=== PATIENT | female | born 1965 | race Caucasian/White ===

== ENCOUNTER 2019-02-18 13:23 | Emergency (ER) | payer OTHER ==
[2019-02-18 13:44] VITALS: TEMP 97.9; BMI 30.2
[2019-02-18] MEDS ORDERED: MAG HYDROX/ALH/SMC/DPHA/LIDO 240 ML MOUTHWASH MM ONE (14:50)
[2019-02-18] MEDS ORDERED: FAMOTIDINE 20 MG/50 ML IVPB 20 MG/50 ML MG IVPB ONE ×2 (14:50→15:09)
--- NOTE | 2019-02-18 14:50 | PDOC ---
History of Present Illness <Ramona Field - Last Filed: 02/18/19 18:03> - General History Source: Patient, Family - History of Present Illness Timing/Duration: reports: getting worse, intermittent Quality: reports: severe Abdominal Pain Onset Location: reports: RUQ, epigastric <Jacklyn Cisneros - Last Filed: 02/19/19 13:49> - General Chief Complaint: Pain Stated Complaint: ABD/PAIN Time Seen by Provider: 02/18/19 14:29 Past History <Ramona Field - Last Filed: 02/18/19 18:03> - Psycho Social/Smoking Cessation Hx Smoking History: Never smoked Hx Alcohol Use: No Drug/Substance Use Hx: No <Jacklyn Cisneros - Last Filed: 02/19/19 13:49> - Past Medical History Allergies/Adverse Reactions: Allergies Allergy/AdvReac Type Severity Reaction Status Date / Time No Known Allergies Allergy Verified 02/18/19 13:34 Home Medications: Ambulatory Orders Famotidine [Pepcid] 20 mg PO DAILY #20 tablet 02/18/19 Review of Systems - Review of Systems Constitutional: No: Chills, Fever Respiratory: No: Shortness of Breath Cardiac (ROS): No: Chest Pain ABD/GI: No: Blood Streaked Bowels, Constipated, Diarrhea, Nausea, Rectal Bleeding, Vomiting, Tarry Stools : No: Burning, Dysuria <Jacklyn Cisneros - Last Filed: 02/19/19 13:49> *Physical Exam - Vital Signs Last Vital Signs Temp Pulse Resp BP Pulse Ox 97.9 F 75 16 141/66 99 02/18/19 13:25 02/18/19 13:25 02/18/19 13:25 02/18/19 13:25 02/18/19 13:25 <Ramona Field - Last Filed: 02/18/19 18:03> - Vital Signs Last Vital Signs Temp Pulse Resp BP Pulse Ox 97.9 F 75 16 141/66 99 02/18/19 13:25 02/18/19 13:25 02/18/19 13:25 02/18/19 13:25 02/18/19 13:25 - Physical Exam General Appearance: Yes: Appropriately Dressed, Moderate Distress HEENT: positive: Normal Voice Neck: positive: Supple Respiratory/Chest: positive: Lungs Clear, Normal Breath Sounds. negative: Respiratory Distress Cardiovascular: positive: Regular Rate, S1, S2 Gastrointestinal/Abdominal: positive: Tender (minimal ttp to mid upper abd and RUQ, neg murpheys, neg CVAT) Musculoskeletal: negative: CVA Tenderness Integumentary: positive: Dry, Warm Neurologic: positive: Fully Oriented, Alert, Normal Mood/Affect <Teena CisnerosJamel - Last Filed: 02/19/19 13:49> ED Treatment Course - LABORATORY CBC & Chemistry Diagram: 02/18/19 15:30 02/18/19 15:30 - ADDITIONAL ORDERS Additional order review: Laboratory Results 02/18/19 02/18/19 16:08 15:30 Sodium 140 Potassium 4.5 Chloride 106 Carbon Dioxide 27 Anion Gap 7 L BUN 12.2 Creatinine 0.6 Est GFR (CKD-EPI)AfAm 119.77 Est GFR (CKD-EPI)NonAf 103.34 Random Glucose 83 Calcium 9.3 Total Bilirubin 0.4 AST 30 ALT 48 Alkaline Phosphatase 106 Total Protein 8.5 H Albumin 4.3 Lipase 157 Urine Color Yellow Urine Appearance Clear Urine pH 6.0 Ur Specific [place] 1.005 L Urine Protein Negative Urine Glucose (UA) Negative Urine Ketones Negative Urine Blood Negative Urine Nitrite Negative Urine Bilirubin Negative Urine Urobilinogen 0.2 Ur Leukocyte Esterase Negative 02/18/19 15:30 RBC 4.19 MCV 90.1 MCHC 33.3 RDW 13.6 MPV 8.1 Neutrophils % 55.6 Lymphocytes % 37.7 Monocytes % 5.4 Eosinophils % 0.8 Basophils % 0.5 - Medications Given in the ED: ED Medications Discontinued Medications Generic Name Dose Route Start Last Admin Trade Name Johnieq PRN Reason Stop Dose Admin Acetaminophen 1,000 mg 02/18/19 14:51 02/18/19 15:37 Ofirmev Injection - IVPB 02/18/19 14:52 1,000 mg ONCE ONE Administration Famotidine/Sodium Chloride 20 mg in 50 mls @ 100 mls/hr 02/18/19 14:50 15:00 Pepcid 20 Mg Premixed Ivpb - IVPB 02/18/19 15:19 100 mls/hr ONCE ONE Administration Sodium Chloride 1,000 mls @ 1,000 mls/hr 02/18/19 14:51 02/18/19 15:37 Normal Saline - IV 02/18/19 15:50 1,000 mls/hr ASDIR STA Administration Lidocaine/Aluminum/Magnesium/Simeth 5 ml 02/18/19 14:50 02/18/19 16:56 Magic Mouthwash *Sjr Formula* - MM 02/18/19 14:51 Not Given ONCE ONE <Ramona Field Nilsa - Last Filed: 02/18/19 18:03> - LABORATORY CBC & Chemistry Diagram: 02/18/19 15:30 02/18/19 15:30 <Jacklyn Cisneros - Last Filed: 02/19/19 13:49> Medical Decision Making - Medical Decision Making The patient was seen and evaluated in conjunction with midlevel provider under my direct supervision, ancillary studies were reviewed. I agree with the plan as outlined ALTA Cisneros. HPI, workup/dispo as outlined. VS reviewed, wnl. sono with fatty liver, post cholecystectomy labs and lytes/UA unremarkable. LFTs/lipase wnl anticipate discharge, pcp followup, return precautions 02/18/19 18:03 <Ramona Field - Last Filed: 02/18/19 18:03> - Medical Decision Making 02/18/19 14:47 53 yo F, reports h/o "reflux" dx 1 yr ago but no scopes and never been on meds, here here w/ abd pain. Patient states for the past month she has had intermittent pain to epigastric area that radiates to right side of abdomen and back. States pain acutely worsened 2 days ago. No association with food. No nausea, vomiting, fever, chills, change in bowel movements, dysuria or hematuria. Unclear if current pain feels like her reflux diagnosed in the past per patient, not currently taking any meds. Per daughter, patient does tend to take frequent NSAIDs for various pains at home. Denies alcohol intake. see exam Gastritis/GERD vs biliary source, less likely pancreatitis, uti/pyelo, stone or appy -trial of GI cocktail -labs -US -reassess 02/18/19 16:01 Signed out to ALTA Saul pending labs/US and reassessment 02/18/19 16:10 <Jacklyn Cisneros - Last Filed: 02/19/19 13:49> Discharge <Ramona Field - Last Filed: 02/18/19 18:03> - Discharge Information Problems reviewed: Yes <Teena Cisneros-Ashley - Last Filed: 02/19/19 13:49> - Discharge Information Clinical Impression/Diagnosis: Abdominal pain Qualifiers: Abdominal location: unspecified location Qualified Code(s): R10.9 - Unspecified abdominal pain Condition: Stable Disposition: HOME - Additional Discharge Information Prescriptions: Famotidine [Pepcid] 20 mg PO DAILY #20 tablet - Follow up/Referral Referrals: Noreen Loomis MD [Staff Physician] - Jakub Sanders MD [Staff Physician] - - Patient Discharge Instructions Patient Printed Discharge Instructions: DI for Abdominal Pain-Adult Additional Instructions: Your Discharge Instructions: You must call primary care physician within 24 hours to arrange follow-up. Return to the Emergency Department with any new, persistent or worsening symptoms, for fever, chills, SOB, dizziness or any other concerning changes that may occur. Follow-up with the chain maker machine call to make an appointment for further evaluation and treatment.
[2019-02-18] MEDS ORDERED: SODIUM CHLORIDE 1,000 ML IV STA (14:51)
[2019-02-18] MEDS ORDERED: ACETAMINOPHEN 1000 MG/100 ML VIAL (NON FORMULARY) IVPB ONE (14:51)
[2019-02-18] MEDS ORDERED: ACETAMINOPHEN INJECTION 100 ML IVPB ONE (15:09)
[2019-02-18 15:49] LABS: BASO % 0.5 % (0-2.0); EOS % 0.8 % (0-4.5); HEMATOCRIT 37.7 % (32.4-45.2); HEMOGLOBIN 12.6 GM/dL (10.7-15.3); LYMPH % 37.7 % (8-40); MCHC 33.3 g/dl (32.0-36.0); MEAN CELL VOLUME 90.1 fl (80-96); MEAN PLT VOLUME 8.1 fl (7.5-11.1); MONO % 5.4 % (3.8-10.2); NEUT % 55.6 % (42.8-82.8); PLATELET COUNT 326 K/MM3 (134-434); RBC 4.19 M/mm3 (3.60-5.2); RDW 13.6 % (11.6-15.6)
[2019-02-18 16:10] LABS: ALBUMIN 4.3 g/dl (3.4-5.0); BILIRUBIN,TOTAL 0.4 mg/dL (0.2-1); BLOOD UREA NITROGEN 12.2 mg/dL (7-18); CALCIUM 9.3 mg/dL (8.5-10.1); CREATININE 0.6 mg/dL (0.55-1.3); POTASSIUM 4.5 mmol/L (3.5-5.1); TOT PROT 8.5 g/dl (6.4-8.2)
[2019-02-18 16:35] LABS: URINE APPEARANCE CLEAR; URINE BILIRUBIN NEGATIVE (NEGATIVE); URINE COLOR YELLOW; URINE GLUCOSE (UA) NEGATIVE (NEGATIVE); URINE KETONE NEGATIVE (NEGATIVE); URINE LEUK ESTERASE NEGATIVE (NEGATIVE); URINE NITRITE NEGATIVE (NEGATIVE); URINE PROTEIN NEGATIVE (NEGATIVE); URINE UROBILINOGEN 0.2 mg/dL (0.2-1.0)
--- NOTE | 2019-02-18 17:51 | PDOC ---
*Physical Exam - Vital Signs Last Vital Signs Temp Pulse Resp BP Pulse Ox 97.9 F 75 16 141/66 99 02/18/19 13:25 02/18/19 13:25 02/18/19 13:25 02/18/19 13:25 02/18/19 13:25 <Abbi Carranza - Last Filed: 02/18/19 17:55> - Vital Signs Last Vital Signs Temp Pulse Resp BP Pulse Ox 97.9 F 75 16 141/66 99 02/18/19 13:25 02/18/19 13:25 02/18/19 13:25 02/18/19 13:25 02/18/19 13:25 <Ramona Fieldjaky - Last Filed: 02/18/19 18:05> ED Treatment Course - LABORATORY CBC & Chemistry Diagram: 02/18/19 15:30 02/18/19 15:30 - ADDITIONAL ORDERS Additional order review: Laboratory Results 02/18/19 02/18/19 16:08 15:30 Sodium 140 Potassium 4.5 Chloride 106 Carbon Dioxide 27 Anion Gap 7 L BUN 12.2 Creatinine 0.6 Est GFR (CKD-EPI)AfAm 119.77 Est GFR (CKD-EPI)NonAf 103.34 Random Glucose 83 Calcium 9.3 Total Bilirubin 0.4 AST 30 ALT 48 Alkaline Phosphatase 106 Total Protein 8.5 H Albumin 4.3 Lipase 157 Urine Color Yellow Urine Appearance Clear Urine pH 6.0 Ur Specific [place] 1.005 L Urine Protein Negative Urine Glucose (UA) Negative Urine Ketones Negative Urine Blood Negative Urine Nitrite Negative Urine Bilirubin Negative Urine Urobilinogen 0.2 Ur Leukocyte Esterase Negative 02/18/19 15:30 RBC 4.19 MCV 90.1 MCHC 33.3 RDW 13.6 MPV 8.1 Neutrophils % 55.6 Lymphocytes % 37.7 Monocytes % 5.4 Eosinophils % 0.8 Basophils % 0.5 - Medications Given in the ED: ED Medications Discontinued Medications Generic Name Dose Route Start Last Admin Trade Name Freq PRN Reason Stop Dose Admin Acetaminophen 1,000 mg 02/18/19 14:51 02/18/19 15:37 Ofirmev Injection - IVPB 02/18/19 14:52 1,000 mg ONCE ONE Administration Famotidine/Sodium Chloride 20 mg in 50 mls @ 100 mls/hr 02/18/19 14:50 15:00 Pepcid 20 Mg Premixed Ivpb - IVPB 02/18/19 15:19 100 mls/hr ONCE ONE Administration Sodium Chloride 1,000 mls @ 1,000 mls/hr 02/18/19 14:51 02/18/19 15:37 Normal Saline - IV 02/18/19 15:50 1,000 mls/hr ASDIR STA Administration Lidocaine/Aluminum/Magnesium/Simeth 5 ml 02/18/19 14:50 02/18/19 16:56 Magic Mouthwash *Sjr Formula* - MM 02/18/19 14:51 Not Given ONCE ONE <Abbi Carranza - Last Filed: 02/18/19 17:55> - LABORATORY CBC & Chemistry Diagram: 02/18/19 15:30 02/18/19 15:30 - ADDITIONAL ORDERS Additional order review: Laboratory Results 02/18/19 02/18/19 16:08 15:30 Sodium 140 Potassium 4.5 Chloride 106 Carbon Dioxide 27 Anion Gap 7 L BUN 12.2 Creatinine 0.6 Est GFR (CKD-EPI)AfAm 119.77 Est GFR (CKD-EPI)NonAf 103.34 Random Glucose 83 Calcium 9.3 Total Bilirubin 0.4 AST 30 ALT 48 Alkaline Phosphatase 106 Total Protein 8.5 H Albumin 4.3 Lipase 157 Urine Color Yellow Urine Appearance Clear Urine pH 6.0 Ur Specific [place] 1.005 L Urine Protein Negative Urine Glucose (UA) Negative Urine Ketones Negative Urine Blood Negative Urine Nitrite Negative Urine Bilirubin Negative Urine Urobilinogen 0.2 Ur Leukocyte Esterase Negative 02/18/19 15:30 RBC 4.19 MCV 90.1 MCHC 33.3 RDW 13.6 MPV 8.1 Neutrophils % 55.6 Lymphocytes % 37.7 Monocytes % 5.4 Eosinophils % 0.8 Basophils % 0.5 - Medications Given in the ED: ED Medications Discontinued Medications Generic Name Dose Route Start Last Admin Trade Name Freq PRN Reason Stop Dose Admin Acetaminophen 1,000 mg 02/18/19 14:51 02/18/19 15:37 Ofirmev Injection - IVPB 02/18/19 14:52 1,000 mg ONCE ONE Administration Famotidine/Sodium Chloride 20 mg in 50 mls @ 100 mls/hr 02/18/19 14:50 15:00 Pepcid 20 Mg Premixed Ivpb - IVPB 02/18/19 15:19 100 mls/hr ONCE ONE Administration Sodium Chloride 1,000 mls @ 1,000 mls/hr 02/18/19 14:51 02/18/19 15:37 Normal Saline - IV 02/18/19 15:50 1,000 mls/hr ASDIR STA Administration Lidocaine/Aluminum/Magnesium/Simeth 5 ml 02/18/19 14:50 02/18/19 16:56 Magic Mouthwash *Sjr Formula* - MM 02/18/19 14:51 Not Given ONCE ONE <Ramona Field - Last Filed: 02/18/19 18:05> Medical Decision Making - Medical Decision Making 02/18/19 17:48 Patient endorsed to me to follow the Abd US. Patient seen and evaluated currently pain free in NAD P/E abd soft/nontender, Patient Full Name: LISSY CAMP Patient Accession No: [id number] Patient : 1965 Reason for Exam: ruq pain Referring Physician: JULIETA GALVEZ Patient Name: CONRADO YUAN THIS IS A PRELIMINARY REPORT FROM [facility] DATE OF SERVICE: 2019-02-18 15:57:45 IMAGES: 39 EXAM: US ABDOMEN LIMITED Right upper quadrant ultrasound REASON FOR EXAM: Right upper quadrant pain COMPARISON: None FINDINGS: Gallbladder surgically absent. Common bile duct normal at 5 mm. Liver is fatty in echotexture without obvious hepatic mass or intrahepatic biliary dilatation. The visualized pancreas and right kidney are within normal. There is no hydronephrosis. Right kidney measures 9.5 x 5.0 x 4.3 cm. No ascites. Visualized portions of the aorta and IVC are unremarkable. IMPRESSION: Cholecystectomy. Fatty liver THIS DOCUMENT HAS BEEN ELECTRONICALLY SIGNED Zo Linder D.O. 02/18/2019 17:21 ETHAN Cardona Please call Imaging Catalogue Clerk [phone] ([phone]) with questions. INTERPRETING RADIOLOGIST: Zo Linder MD Electronically Signed: Feb 18, 2019 05:21PM EST Labs reviewed no acute findings I discussed the physical exam findings, ancillary test results and final diagnoses with the patient. I answered all of the patient's questions. The patient was satisfied with the care received and felt comfortable with the discharge plan and treatment plan. The Patient agrees to follow up with the primary care physician within 24-72 hours. <Abbi Carranza - Last Filed: 02/18/19 17:55> Discharge - Discharge Information Problems reviewed: Yes <Abbi Carranza - Last Filed: 02/18/19 17:55> - Admission No <Ramona Field - Last Filed: 02/18/19 18:05> - Discharge Information Clinical Impression/Diagnosis: Abdominal pain Qualifiers: Abdominal location: unspecified location Qualified Code(s): R10.9 - Unspecified abdominal pain Condition: Stable Disposition: HOME - Additional Discharge Information Prescriptions: Famotidine [Pepcid] 20 mg PO DAILY #20 tablet - Follow up/Referral Referrals: Jakub Sanders MD [Staff Physician] - Noreen Loomis MD [Staff Physician] - - Patient Discharge Instructions Patient Printed Discharge Instructions: DI for Abdominal Pain-Adult Additional Instructions: Your Discharge Instructions: You must call primary care physician within 24 hours to arrange follow-up. Return to the Emergency Department with any new, persistent or worsening symptoms, for fever, chills, SOB, dizziness or any other concerning changes that may occur. Follow-up with the clean up person call to make an appointment for further evaluation and treatment.
[2019-02-18 18:21] VITALS: BP 142/78; PULSE 74
--- NOTE | 2019-02-19 11:30 | EKG ---
Test Reason : Blood Pressure : / mmHG Vent. Rate : 095 BPM Atrial Rate : 095 BPM P-R Int : 154 ms QRS Dur : 090 ms QT Int : 376 ms P-R-T Axes : 060 049 050 degrees QTc Int : 472 ms NORMAL SINUS RHYTHM NORMAL ECG NO PREVIOUS ECGS AVAILABLE Confirmed by NARINDER DO MD ([id number]) on 02/19/2019 11:29:47 AM Referred By: Confirmed By:NARINDER DO MD
== END 2019-02-18 18:00 | disposition home or self-care (01) ==
LOC: JER 13:23
PROC: 3E033GC Introduction of Other Therapeutic Substance into Peripheral Vein, Percutaneous Approach (ICD-10-PCS; principal; 2019-02-18)
PROC: 3E033NZ Introduction of Analgesics, Hypnotics, Sedatives into Peripheral Vein, Percutaneous Approach (ICD-10-PCS; 2019-02-18)
DX: R10.9 Unspecified abdominal pain (principal); K76.0 Fatty (change of) liver, not elsewhere classified; Z90.49 Acquired absence of other specified parts of digestive tract
CPT/HCPCS: 36415; 76705-TC; 80053; 81003; 83690; 85025; 93005; 93010; 96365; 96375; 99283-25; J0131; J7030